=== PATIENT | female | born 1950 | race African-American/Black ===

== ENCOUNTER → 2020-05-09 | Outpatient (CLI) | payer OTHER ==
[2016-02-16 12:49] VITALS: BP 138/77
--- NOTE | 2020-05-09 17:37 | RAD ---
DATE: 05/09/2020 EXAM: MAMMO FRANCIA SCREEN RT HISTORY: Screening. History of left breast cancer post mastectomy in 2003. COMPARISON: 05/03/2019, 03/07/2018, 02/05/2016 This study was interpreted with the benefit of Computerized Aided Detection (CAD). Breast Density: SCATTERED The breast parenchyma shows scattered fibroglandular densities. Breast parenchyma level B. FINDINGS: No mass, suspicious calcification, or architectural distortion in the right breast. IMPRESSION: No evidence of malignancy. BI-RADS CATEGORY: 1 NEGATIVE RECOMMENDED FOLLOW-UP: 12M 12 MONTH FOLLOW-UP PQRS compliance statement: Patient information was entered into a reminder system with a target due date for the next mammogram. Mammography is a sensitive method for finding small breast cancers, but it does not detect them all and is not a substitute for careful clinical examination. A negative mammogram does not negate a clinically suspicious finding and should not result in delay in biopsying a clinically suspicious abnormality. "Our facility is accredited by the [employer]amm[employer]."
== END ==
LOC: MAMMO 08:11
PROVIDERS: ATTEND Internal Medicine
DX: Z12.31 Encounter for screening mammogram for malignant neoplasm of breast (principal)
CPT/HCPCS: 77061

== ENCOUNTER → 2021-05-12 | Outpatient (CLI) | payer OTHER ==
[2016-02-16 12:49] VITALS: BP 138/77
--- NOTE | 2021-05-13 09:47 | RAD ---
Right digital screening mammogram to include digital breast tomosynthesis (3-D mammography) CLINICAL HISTORY: Screening study. History of left mastectomy. Digital MLO and CC mammograms of the right breast were obtained. Additionally digital breast tomosynt hesis images (3-D mammography) of the right breast in the CC and MLO projections were obtained. Comparison studies are dated 05/09/2020, 05/03/2019, and 03/07/2018. The breast parenchyma is composed of scattered fibroglandular densities which can obscure a lesion on mammography (breast density B). No spiculated mass is seen. No malignant appearing calcification or area of architectural distortion is noted. Digital breast tomosynthesis images demonstrate no spiculated mass. No malignant appearing calcificat ion is seen. Impression: BI-RADS Category 1: Negative. There is no mammographic evidence of malignancy. Routine y early screening mammography is recommended for follow-up. This examination was reviewed with the aid of computer-aided detection. A mammogram does not have 100% sensitivity and therefore a negative imaging study should not delay fu rther work up of a suspicious abnormality. Patient information is entered into the reminder system with a target due date for the next screening mammogram of 05/12/2022 "Our facility is accredited by the [employer] Mammography [employer]." Electronically signed by: Michael Merino MD (05/13/2021 9:45 AM) [id number]
== END ==
LOC: MAMMO 12:03
PROVIDERS: ATTEND Internal Medicine
DX: Z12.31 Encounter for screening mammogram for malignant neoplasm of breast (principal)
CPT/HCPCS: 77063; 77067